=== PATIENT | male | born 1975 | race Caucasian/White ===

== ENCOUNTER 2024-04-15 16:24 | Inpatient (IN) | payer OTHER, SELFPAY ==
[2024-04-15] VITALS (7 sets, daily range): BP systolic 120–155; BP diastolic 67–111
--- NOTE | 2024-04-15 13:16 | ED.GENMED ---
History of Present Illness
General
Chief Complaint: Crisis Evaluation
Source: patient, police and other (302)
Exam Limitations: none
Time Seen by Provider: 04/15/24 12:51
Nursing documentation reviewed up to this point in time: agreed with
Travel History
Have you had any contact with someone who has COVID-19?: No
Do you have any symptoms of coronavirus? Fever > 100 degrees, chills, cough, shortness of breath, sore throat, loss of taste or smell, muscle aches, or headache?: No
History of Present Illness
History of Present Illness:
49-year-old male who admits to a history of daily alcohol use but denies any other chronic medical issues presents to the emergency room in police custody being held on a 302 apparently filed by his ; 302 filed apparently for suicidal ideation
and aggressive/violent threats. Patient tells me that 'this is all lies, she is the crazy woman.' He tells me that he did not threaten to kill himself and has no suicidal ideation at present. He says that he does not have any homicidal ideation
or intent to hurt others. He tells me he has not been having hallucinations. He says that he did try to hurt himself a year ago but has no suicidal thoughts currently. He does report that he feels some mild tremulousness and agitation and
believes he could be withdrawing from alcohol�he says that he had a few beers this morning last drink was 3 to 5 hours ago he estimates. Apparently he normally drinks 24 beers a day. He denies any other physical complaints such as chest pain,
shortness of breath, abdominal pain, nausea, headache or any other issues.
Review of Systems
Review of Systems
All Other Systems: ROS reviewed and negative except as documented in HPI and ROS
Constitutional: Denies fever
Respiratory: Denies cough or trouble breathing
Cardiac: Denies chest pain or palpitations
ABD/GI: Denies abdominal pain, nausea or vomiting
: Denies flank pain
Musculoskeletal: Denies neck pain or back pain
Neurological: Reports other (Tremulousness); Denies headache
Psychiatric: Reports anxiety and other (Restless); Denies suicidal or hallucinations
Phy Exam
Physical Exam
Physical Exam:
General: Awake, alert, oriented x3; patient somewhat restless and agitated, constantly shifting in bed
Head: Normocephalic, atraumatic
Eyes: Conjunctiva normal, pupils 3 to 4 mm and reactive to light bilaterally
Throat: Airway intact, handling secretions
Neck: Trachea midline, supple without meningismus
Lungs: Clear to auscultation bilaterally, no wheezing, rales, rhonchi
Heart: Regular rate and rhythm, no murmurs, gallops, or rubs
Abd: Soft, non distended, nontender
Neuro: Cranial nerves grossly intact, speech fluid, no gross motor or sensory deficits
Skin: no rash
Extremities: Atraumatic, warm well-perfused
Scores
Heart Failure Risk
Heart Failure Risk Score: Not Applicable
Heart Score for Chest Pain Patients
STEMI patient?: Not applicable
Withdrawal Assessment of Alcohol
Withdrawal Assessment Completed?: Yes
Nausea and Vomiting: No nausea and no vomiting
Tactile Disturbances: None
Tremor: Not visible, but can be felt fingertip to fingertip
Auditory Disturbances: Not present
Paroxysmal Sweats: No sweat visible
Visual Disturbances: Not present
Anxiety: Moderately anxious, or guarded, so anxiety is inferred
Headache, Fullness in Head: Not present
Agitation: Moderately fidgety and restless
Orientation and clouding of sensorium: Oriented and can do serial additions
Total CIWA Score: 9
Alcohol Withdrawal Medication Recommendation: Equal to MSAS Score 5-7. Lorazepam 1mg IV or PO NOW & re-assess q2hrs
Course
Orders/Labs/Results
Orders:
Orders
04/15/24 12:56
Drug Screen, Urine [Urine Drug Abuse Screen] Urgent
04/15/24 13:13
Lorazepam [Ativan] 1 mg PO NOW STA
04/15/24 13:23
Acetaminophen Urgent
Alcohol Urgent
Comprehensive Metabolic Panel Urgent
Salicylate Urgent
04/15/24 13:24
Complete Blood Count/With Diff Urgent
04/15/24 14:18
PSYCHIATRY CONSULT Urgent
Consulting Provider: Darrell Roach
Was physician already notified: Yes
Abnormal Lab Results
04/15/24 04/15/24
13: 13:24
MCH 31.6 H pg
(27.0-31.0)
Monocytes % 10.3 H %
(1.7-9.3)
BUN 7 L mg/dl
(9-20)
Glucose 112 H mg/dl
(70-99)
AST 116 H U/L
(17-59)
ALT 120 H U/L
(0-50)
Salicylates < 1.0 L mg/dl
(2.0-20.0)
Acetaminophen < 10 L ug/ml
(10-30)
04/15/24 13:24
04/15/24 13:23
Vital Signs
Initial and Last Documented VS:
Initial Vital Signs
Temp Pulse Resp BP Pulse Ox
37.2 C 107 18 155/111 99
04/15/24 12:58 04/15/24 12:58 04/15/24 12:58 04/15/24 12:58 04/15/24 12:58
Last Documented Vital Signs
Temp Pulse Resp BP Pulse Ox
37.2 C 107 18 155/111 99
04/15/24 12:58 04/15/24 12:58 04/15/24 12:58 04/15/24 12:58 04/15/24 12:58
MDM/Problems Addressed
Differential Diagnosis Includes:
Suicidality; concern clinically for alcohol withdrawal
MDM/Problems Addressed:
49-year-old male presents to the emergency room in police custody on a 302; he presents due to concerns about suicidality and violence/aggression. He does have a history of heavy daily alcohol use which he admits. He believes he could be
withdrawing from alcohol and he does clinically exhibit some signs of withdrawal�he is hypertensive, tachycardic, restless and anxious with some tremulousness. He says his last drink was at least 3 hours ago. Will plan to dose with some p.o.
Ativan here for early withdrawal. Will check basic labs including a CBC and a CMP, tox screen and alcohol level. Will monitor closely and reassess after the above. Crisis is aware patient and will complete her assessment.
Labs reviewed: CBC unremarkable, CMP shows mild elevation in transaminases likely in the setting of chronic alcohol abuse. Alcohol level 291. Patient was evaluated by psychiatry who upheld 302. Will need dual diagnosis facility. Unfortunately
were not able to place in detox facility in a timely manner per psychiatry. He is already starting signs of withdrawal with alcohol of 291 and drinks quite heavily daily�will admit for monitoring and treatment of alcohol withdrawal while pending
placement. Discussed with hospitalist for admission.
Chronic conditions affecting care:
Alcohol use
Acute Exacerbation and/or Progression of Chronic Illness:
Acutely hypertensive likely related to agitation and possibly alcohol withdrawal�will treat with Ativan but no emergent antihypertensives indicated at present
Acute Exacerbation and/or Progression of Chronic Illness: HTN
*Pulse Oximetry
Patient hypoxic: no
*Critical Care Note
Total Time (30-74mins, 75-104mins- exclusive of procedures): Not Applicable
Data Reviewed
Source: patient, police and other (302)
Patient Management
Discussion with other providers: Hospitalist (Discussed with hospitalist), Fitting Room Associate (Discussed with psychiatrist) and Other (Discussed with crisis team)
Escalation/DeEscalation of care consider admission/obs:
Admission indicated
ED Attending Note
-
Portions of this chart may have been created with voice recognition software.� Occasional wrong word or��sound alike� substitutions may have occurred due to the inherent limitations of voice recognition software.
Discharge Plan
Departure
Patient Disposition: Admit
Date of Disposition: 04/15/24
Time of Disposition: 14:15
Admit to doctor: Pili
Presentation/result/management discussed w/ accepting MD/DO: Hospitalist
Discharge Problem:
Alcohol withdrawal, Suicidal ideation
Referrals:
UNKNOWN,NO INTERVIEW [Family Provider] -
Interventions
Interventions:
*Risk Screen - Suicide Last Done: 04/15/24 12:52
*General Assessment Last Done: 04/15/24 12:52
*Neglect/Abuse Screening Last Done: 04/15/24 12:52
*ED COVID-19 Vaccine History Last Done: 04/15/24 12:52
ED-Psychological Assessment Last Done: 04/15/24 12:52
Discharge Date and Time
Print Language: EGYPTIAN
[2024-04-15] MEDS: ATIVAN 1 MG PO ×6 (13:20→23:38)
[2024-04-15 13:44] LABS: % Basophils 0.2 % (0-2); % Eosinophils 0.2 % (0-6); % Immature Granulocytes 0.2 % (0-0.5); % Lymphocytes 29.1 % (20.5-51.1); % Monocytes 10.3 % (1.7-9.3); Absolute Lymphocytes 1.4 10^3/uL (1.2-3.4); Absolute Monocytes 0.5 10^3/uL (0.1-0.6); Absolute Neutrophils 2.9 10^3/uL (1.4-6.5); Hematocrit 43.4 % (39.0-52.0); Hemoglobin 15.6 g/dL (13.0-18.0); Mean Corp Hgb Conc. 35.9 g/dL (33.0-37.0); Mean Corpuscular Hgb 31.6 pg (27.0-31.0); Mean Platelet Volume 9.2 fL (7.4-10.4); Nucleated Red Blood Cells % 0 % (-); Platelet Count 299 10^3/uL (130-400); Red Blood Cell Count 4.93 10^6/uL (4.70-6.10); Red Cell Dist. Width 12.4 % (11.5-14.5); White Blood Cell Count 4.8 10^3/uL (4.8-10.8)
[2024-04-15 13:59] LABS: ALT (SGPT) 120 U/L (0-50); AST (SGOT) 116 U/L (17-59); Acetaminophen < 10 ug/ml (10-30); Alcohol 291 mg/dl; Alkaline Phosphatase 97 U/L (38-126); Blood Urea Nitrogen 7 mg/dl (9-20); Calcium 8.9 mg/dl (8.4-10.2); Carbon Dioxide 28 mmol/L (22-30); Chloride 101 mmol/L (98-107); Glucose 112 mg/dl (70-99); Potassium 4.5 mmol/L (3.5-5.1); Salicylate < 1.0 mg/dl (2.0-20.0); Sodium 139 mmol/L (135-145); Total Bilirubin 0.7 mg/dl (0.2-1.3); eGFR > 60.00
--- NOTE | 2024-04-15 14:24 | PHANOTE ---
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
--- NOTE | 2024-04-15 14:47 | CM ---
Addendum entered by Martine Fox RN 04/15/24 15:45:
CM spoke with Nabil from [facility] and updated with a referral for inpatient drug/alcohol placement. Nabil or Ty from [facility] will follow patient.
Original Note:
Zane was updated by Shreya from crisis regarding 302. As per psychiatry, there are no plans to pursue 303 at this time. Plan for patient to be medically admitted.
CM updated Claudia Hall.
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
[2024-04-15] MEDS: PHENOBARBITAL 104 MG IV (16:12)
[2024-04-15 16:22] LABS: Alcohol 216 mg/dl; GGTP 25 U/L (15-73); Magnesium 2.3 mg/dl (1.6-2.3); Phosphorus 3.1 mg/dl (2.5-4.5)
[2024-04-15 16:30] LABS: B-Hydroxybutyrate 0.09 mmol/L (0.02-0.27)
[2024-04-15 16:30] LABS: INR 1.02; PT 13.4 Sec (11.4-14.6)
[2024-04-15 16:31] LABS: APTT 24.3 Sec (23.4-35.0)
[2024-04-15] MEDS: THIAMINE INJECTION 200 MG IV ×2 (17:59→23:38)
--- NOTE | 2024-04-15 18:03 | PTCARENOTE ---
Addendum entered by Paloma Felipe RN 04/15/24 18:12:
Patient has cell phone at bedside.
Original Note:
Received patient on admission from ED via stretcher accompanied by nurse and security guards; belongings in security dept. Received ativan and phenobarbital prior to coming to unit. Patient able to transfer self from stretcher to bed. Ox3,
cooperative with placement of heart monitor and BP cuff. Able to answer admission questions. 1:1 with PCT; only necessary equipment in room. MSAS =3. SR on monitor.
[2024-04-15] MEDS: PHENOBARBITAL 97.5 MG IV (21:08)
[2024-04-16] VITALS (9 sets, daily range): BP systolic 127–145; BP diastolic 45–99; BMI 26.1
--- NOTE | 2024-04-16 03:34 | PTCARENOTE ---
ax3 medicated with prn Ativan per msas- mostly cooperative- 1-1 at bedside safe environment maintained
[2024-04-16] MEDS: ATIVAN 1 MG PO ×7 (05:49→22:48)
[2024-04-16 05:55] LABS: Hematocrit 40.8 % (39.0-52.0); Hemoglobin 14.3 g/dL (13.0-18.0); Mean Corpuscular Hgb 31.8 pg (27.0-31.0); Mean Corpuscular Volume 90.7 fL (80.0-94.0); Mean Platelet Volume 9.1 fL (7.4-10.4); Platelet Count 234 10^3/uL (130-400); Red Cell Dist. Width 12.1 % (11.5-14.5); White Blood Cell Count 6.5 10^3/uL (4.8-10.8)
--- NOTE | 2024-04-16 06:02 | PTCARENOTE ---
ax3 pleasant and cooperative- remains 1-1- medicated with phenobarb/ativan per mar and msas protocol
[2024-04-16 07:06] LABS: TSH 3.11 uIU/ml (0.47-4.68)
[2024-04-16 07:07] LABS: Vitamin B12 586 pg/ml (239-931)
[2024-04-16 07:30] LABS: ALT (SGPT) 72 U/L (0-50); AST (SGOT) 73 U/L (17-59); Albumin 3.8 g/dl (3.5-5.0); Alkaline Phosphatase 110 U/L (38-126); Blood Urea Nitrogen 13 mg/dl (9-20); Calcium 8.7 mg/dl (8.4-10.2); Carbon Dioxide 27 mmol/L (22-30); Chloride 99 mmol/L (98-107); Estimated Creatinine Clearance 97 ml/min; Glucose 111 mg/dl (70-99); Magnesium 1.8 mg/dl (1.6-2.3); Potassium 3.9 mmol/L (3.5-5.1); Sodium 134 mmol/L (135-145); Total Bilirubin 1.1 mg/dl (0.2-1.3); Total Protein 6.3 g/dl (6.3-8.2); eGFR > 60.00
[2024-04-16] MEDS: FOLVITE 1 MG PO (07:54)
[2024-04-16] MEDS: THIAMINE INJECTION 200 MG IV ×2 (07:55→15:47)
[2024-04-16] MEDS: MIRALAX 17 GRAMS PO (07:55)
[2024-04-16] MEDS: PHENOBARBITAL 97.5 MG IV ×2 (07:55→15:47)
--- NOTE | 2024-04-16 08:21 | PTCARENOTE ---
pt wakes to name. states no pain. calm following commands. states does not feel anxious. taking medication. msas 0 1:1 obs maintained by RN.
--- NOTE | 2024-04-16 09:45 | W.PN.HOSP.TC ---
Today's Communication/Plan
-
cont current treatment
await psych
Assessment / Plan
Assessment / Plan
pt is a 49 year old male
Alcohol withdrawal-- spoke with psychiatry, patient was 302'd which was upheld--concern for significant withdrawal symptoms given his amount of alcohol intake (30 beers per day)--MSAS--phenobarbitol taper--continue thiamine and folate replacement,
replace K and Mag if needed--- strongly suspect undiagnosed psychiatric disorder perhaps bipolar, patient seems manic--refusing any medications from that standpoint--on 1:1--await psych input re: downgrade and 1:1
DVT prophylaxis
CODE STATUS--full code
Anticipated Discharge: > 48 hours
Subjective/Interval History
-
Date of Service: April 16, 2024
pt without c/o--wants to know what his paperwork says to keep him here and when he can go home
Objective Data
-
Labs:
Laboratory Results
04/16/24 04/16/24
05:40 06:38
WBC 6.5
Hgb 14.3
Hct 40.8
Plt Count 234 D
Sodium Cancelled 134 L
Potassium Cancelled 3.9
Chloride Cancelled 99
Carbon Dioxide Cancelled 27
BUN Cancelled 13
Creatinine Cancelled 0.9
Glucose Cancelled 111 H
Calcium Cancelled 8.7
Total Bilirubin Cancelled 1.1
AST Cancelled 73 H
ALT Cancelled 72 H
Alkaline Phosphatase Cancelled 110
Vital Signs:
max temp for 24 hours
04/15/24
23:19
Temp 98.8 F
Vital Signs
Temp Pulse Resp BP Pulse Ox
98.1 F 69 14 145/96 98
04/16/24 08:19 04/16/24 08:02 04/16/24 08:02 04/16/24 08:02 04/16/24 08:19
I&O
04/15/24 04/16/24 04/17/24
06:59 06:59 06:59
Intake Total 1600 / 1600
Balance 1600 / 1600
Review of Systems
-
All other systems: Reviewed and negative
Physical Exam
-
General: Well Developed, Well Nourished and No Apparent Distress
HEENT: Normocephalic and Atraumatic
Respiratory: Clear to Auscultation; Negative Wheezes or Rhonchi
Cardiac: Regular Rhythm and S1/S2; Negative Murmur
GI: Soft, Nontender, Nondistended and Normal Bowel Sounds
Musculoskeletal: No Clubbing, No Cyanosis and No Edema
Neuro: Awake; Negative Tremors
Psych: Calm
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
[2024-04-16] MEDS: MAGNESIUM OXIDE 500 MG PO ×2 (12:31→19:34)
--- NOTE | 2024-04-16 12:48 | PTCARENOTE ---
pt states he wants to go home explained the 302 process. states he feels anxious and would like something for it. msas as documented.
--- NOTE | 2024-04-16 13:37 | CM ---
Patient with Dx alcohol withdrawal on 302 psychiatric hold. Tox screen: Etoh 291, 216. Receiving IV Phenobarb, IV Ativan prn. Seen by Psych. One to one observation. ROBIN.
Met with patient with nurse Hiram present- he is declining any inpatient or outpatient referrals for a Psych/Etoh program. He says he went to [facility] for drug use before and all it did was create a social network for more drug use when he left the
program. He is stating he wants to leave today and that he is feeling anxious. Nurse told him he cannot leave due to 302. He says he missed an appointment today at [facility].
Message to [facility] with update patient declining Inpt Dual Diagnosis program at this time.
Spoke with JULIEN Ferrer; he will let [facility] know that patient missed his appt today due to admission here. Nabil says he is not permitted to see this patient until the 302 is lifted.
Plan follow up with Psych on 04/20 when 302 will if 303 will be pursued, and if will need referrals to an Inpatient Dual Dx program.
[2024-04-16] MEDS: LUMINAL 64.7999999999999972 MG PO (21:30)
[2024-04-16] MEDS: ATIVAN 2 MG IV (22:10)
[2024-04-17] MEDS: THIAMINE INJECTION 200 MG IV ×4 (02:38→21:25)
--- NOTE | 2024-04-17 02:51 | PTCARENOTE ---
msas max was 11- difficult time keeping leads on pt- pt feels he is in more severe withdraw- medicating per msas- see 11-24 at bedside
[2024-04-17 03:16] VITALS: BP 136/91
[2024-04-17] MEDS: ATIVAN 1 MG PO ×8 (05:41→22:32)
[2024-04-17 06:12] LABS: Hemoglobin 13.6 g/dL (13.0-18.0); Mean Corp Hgb Conc. 35.8 g/dL (33.0-37.0); Mean Corpuscular Hgb 31.8 pg (27.0-31.0); Mean Corpuscular Volume 88.8 fL (80.0-94.0); Mean Platelet Volume 9.5 fL (7.4-10.4); Platelet Count 214 10^3/uL (130-400); Red Blood Cell Count 4.28 10^6/uL (4.70-6.10); White Blood Cell Count 5.7 10^3/uL (4.8-10.8)
[2024-04-17 06:26] LABS: ALT (SGPT) 75 U/L (0-50); AST (SGOT) 64 U/L (17-59); Alkaline Phosphatase 91 U/L (38-126); Blood Urea Nitrogen 8 mg/dl (9-20); Calcium 9.3 mg/dl (8.4-10.2); Carbon Dioxide 25 mmol/L (22-30); Chloride 100 mmol/L (98-107); Estimated Creatinine Clearance 109 ml/min; Glucose 97 mg/dl (70-99); Magnesium 2.1 mg/dl (1.6-2.3); Potassium 4.3 mmol/L (3.5-5.1); Sodium 134 mmol/L (135-145); Total Bilirubin 1.1 mg/dl (0.2-1.3); Total Protein 6.7 g/dl (6.3-8.2); eGFR > 60.00
[2024-04-17] MEDS: LUMINAL 64.7999999999999972 MG PO ×2 (07:09→15:04)
[2024-04-17] MEDS: FOLVITE 1 MG PO (07:10)
[2024-04-17] MEDS: MIRALAX 17 GRAMS PO (07:11)
[2024-04-17] MEDS: MAGNESIUM OXIDE 500 MG PO ×2 (07:11→21:25)
[2024-04-17 07:30] VITALS: BP 142/91
--- NOTE | 2024-04-17 08:31 | PTCARENOTE ---
0800 MSAS 6. Medicated w/ 1mg ativan. See MAR.
--- NOTE | 2024-04-17 08:42 | PTCARENOTE ---
Assumed care of pt from nightshift RN. Pt AAOx3, restless. Forgetful at times. NSR on the monitor, HR 60s-70s. Pt agitated stating that he needs to shower. This RN explained to pt that MD order is needed to shower, however able to provide bath wipes
to freshen up until MD sees patient.
--- NOTE | 2024-04-17 08:51 | W.PN.HOSP.TC ---
Today's Communication/Plan
-
okay to shower
Assessment / Plan
Assessment / Plan
pt is a 49 year old male
Alcohol withdrawal-- spoke with psychiatry, patient was 302'd which was upheld--concern for significant withdrawal symptoms given his amount of alcohol intake (30 beers per day)--MSAS--phenobarbitol taper--continue thiamine and folate replacement,
replace K and Mag if needed--- strongly suspect undiagnosed psychiatric disorder perhaps bipolar, patient seems manic--refusing any medications from that standpoint--on 1:1--apprec psych input --keep 1:1--transfer to tele
DVT prophylaxis
CODE STATUS--full code
Anticipated Discharge: > 48 hours
Subjective/Interval History
-
Date of Service: April 17, 2024
pt without c/o
Objective Data
-
Labs:
Laboratory Results
04/17/24
06:04
WBC 5.7
Hgb 13.6
Hct 38.0 L
Plt Count 214
Sodium 134 L
Potassium 4.3
Chloride 100
Carbon Dioxide 25
BUN 8 L
Creatinine 0.8
Glucose 97
Calcium 9.3
Total Bilirubin 1.1
AST 64 H
ALT 75 H
Alkaline Phosphatase 91
Vital Signs:
max temp for 24 hours
04/16/24
23:10
Temp 97.8 F
Vital Signs
Temp Pulse Resp BP Pulse Ox
97.6 F 76 26 136/91 98
04/17/24 04:11 04/17/24 06:00 04/17/24 06:00 04/17/24 03:16 04/16/24 23:17
I&O
04/16/24 04/17/24 04/18/24
06:59 06:59 06:59
Intake Total 1600 / 1600
Balance 1600 / 1600
Review of Systems
-
All other systems: Reviewed and negative
Physical Exam
-
General: Well Developed, Well Nourished and No Apparent Distress
HEENT: Normocephalic and Atraumatic
Respiratory: Clear to Auscultation; Negative Wheezes or Rhonchi
Cardiac: Regular Rhythm and S1/S2; Negative Murmur
GI: Soft, Nontender, Nondistended and Normal Bowel Sounds
Musculoskeletal: No Clubbing, No Cyanosis and No Edema
Skin: Warm
Neuro: Awake
--- NOTE | 2024-04-17 11:27 | PTCARENOTE ---
pt agitated wanting to go home. States 'i have people that will pick me up'. This RN explained to pt he is unable to leave at this time regardless of having a ride home.
[2024-04-17 11:43] LABS: Urine Albumin Negative (Neg - Trace); Urine Bilirubin Negative (Negative); Urine Character Clear (Clear); Urine Color Yellow; Urine Glucose Negative (Negative); Urine Ketone Negative (Negative); Urine Leukocyte Negative (Negative); Urine Nitrite Negative (Negative); Urine Occult Blood Negative (Negative); Urine Urobilinogen Negative (Neg - 1+)
[2024-04-17 11:50] LABS: Amphetamines Negative (Negative); Barbiturates Positive (Negative); Benzodiazepines Positive (Negative); Buprenorphine Negative (Negative); Cocaine Negative (Negative); Marijuana Negative (Negative); Methadone Negative (Negative); Methamphetamines Negative (Negative); Opiates Negative (Negative); Phencyclidine Negative (Negative); Tricyclic Antidepressants Negative (Negative)
[2024-04-17 12:19] LABS: Fentanyl, Urine Negative (Negative)
[2024-04-17 15:05] VITALS: BP 129/88
--- NOTE | 2024-04-17 15:49 | W.PN.UPDATE ---
Update Note
Progress Note Update
49 y/o single male on by mother of his child in IMU for alcohol withdrawal. On 04/15 BAL was 291; BHB 0.09. He is on Phenobarbital and Ativan detox.
Was resting comfortably, but quite cantankerous. Denies that Dr. Roach read him the petition. He does admit to drinking beer and being in the hospital for alcohol detox. He is has apparently had multiple past detoxes, but did not share
details with me. He wants to leave the hospital and is not very accepting that he is not permitted to leave due to the 302. I further told him that he should continue on his detox medications to prevent withdrawal symptoms and potentially
seizures. He claims he has taken Ativan 1 mg. q 8 H prescribed and was not drinking at the time.
He focused on just wanting to get an iPhone port warden as his phone is .
Continues on . He is opposed to voluntary hospitalization or to admission to alcohol treatment program.
Psychiatry will follow.
--- NOTE | 2024-04-17 17:39 | PTCARENOTE ---
Pt becoming agitated that hospital pajama bottoms fall down repeatedly. Explained to patient that there are no more pt pajama bottoms on unit. Call placed to [facility] for paper scrub pants as all hospital pajama pants fit the same. This RN asked pt what
size he is. Pt continuously being irate stating 'what goes around comes around'. This RN asked for clarification as there have been numerous accommodations provided throughout the day. This RN explained to patient the importance of being respectful
to dietary as he wouldn't provide staff w/ confirmation of name/. Pt AAOx3, NSR on the [facility], HR 70s. BP 131/87. Pt states that were holding him against his will. Reiterated what psychiatrist explained regarding 302. Pt 'doesn't accept it'.
[2024-04-17 17:47] VITALS: BP 131/87
--- NOTE | 2024-04-17 18:17 | PTCARENOTE ---
Pt expressing that he is wanting to leave, again. This RN explained to pt, again, that he is a 302 and unable to leave. Pt states he has not seen any paperwork regarding 302. Pt also told this RN 'if i'm not out of here within the hour, I'm going to
bruce you and this whole hospital. I have a good tag meter operator, you'll see'. This RN explained to patient that I don't make the rules, multiple doctors have explained the 302 process, and legally he is not allowed to leave.
--- NOTE | 2024-04-17 18:26 | PTCARENOTE ---
security at bedside regarding increasing agitation. Pt threatening to leave. Pt now screaming at security. Pt still agitated over pants, however, [employer] sent a top instead of pants. Pt expressed that this is RNs fault.
--- NOTE | 2024-04-17 18:42 | PTCARENOTE ---
Nursing security supervisor at bedside regarding pt escalating. Pt repeating that this RN gave him ripped pants so his 'junk' is hanging out. This RN explained that it's how the hospital pajama pants are. Pt also states that i'm withholding phone home health nurse licensed practical
from him. However, this RN has no home health nurse licensed practical to share with patient. Offered apology to pt regarding phone home health nurse licensed practical. Pt replied that this was on purpose. marketing proposal specialist in room at present.
[2024-04-17] MEDS: LUMINAL 32.3999999999999986 MG PO (21:25)
[2024-04-17 23:07] VITALS: BP 139/88
--- NOTE | 2024-04-18 00:52 | PTCARENOTE ---
Addendum entered by Leona Catherine 04/18/24 03:07:
MSAS 2-5, see MAR for intervention.
Original Note:
Pt AAOx3, restless at times. Pt requests a snack, this RN gave pt crackers. Pt still reports being too hungry to sleep, states he will 'be irate by the morning' if he does not eat now. This RN gave pt a boxed lunch.
[2024-04-18] MEDS: ATIVAN 1 MG PO ×2 (00:55→09:35)
[2024-04-18 03:30] VITALS: BP 125/84
[2024-04-18 03:35] VITALS: BP 125/84
--- NOTE | 2024-04-18 07:35 | PTCARENOTE ---
Assumed care of pt from giovanna ROMO. 1:1 present. Pt resting comfortably, no diaphoresis present, HR in 60s, does not appear tremulous, no fever present.
--- NOTE | 2024-04-18 08:39 | W.PN.HOSP.TC ---
Today's Communication/Plan
-
apprec psych
cont 1:1
ok for tele if bed available
Assessment / Plan
Assessment / Plan
pt is a 49 year old male
Alcohol withdrawal--seems resolved-- spoke with psychiatry, patient was 302'd which was upheld-- alcohol intake (30 beers per day)--MSAS, phenobarbitol taper, standing ativan TID, thiamine and folate replacement, replace K and Mag if needed---
strongly suspect undiagnosed psychiatric disorder perhaps bipolar--refusing any medications from that standpoint--on 1:1--apprec psych input --keep 1:1--transfer to tele
DVT prophylaxis
CODE STATUS--full code
Anticipated Discharge: > 48 hours
Subjective/Interval History
-
Date of Service: April 18, 2024
pt turned away from me this AM when trying to examine him--no verbal contact with me
Objective Data
-
Labs:
Laboratory Results
04/18/24
06:00
WBC Pending
Hgb Pending
Hct Pending
Plt Count Pending
Sodium Pending
Potassium Pending
Chloride Pending
Carbon Dioxide Pending
BUN Pending
Creatinine Pending
Glucose Pending
Calcium Pending
Vital Signs:
max temp for 24 hours
04/18/24
03:35
Temp 98.4 F
Vital Signs
Temp Pulse Resp BP Pulse Ox
98.4 F 69 18 125/84 96
04/18/24 03:35 04/18/24 06:00 04/18/24 03:35 04/18/24 03:35 04/18/24 03:35
I&O
04/17/24 04/18/24 04/19/24
06:59 06:59 06:59
Intake Total 2640 / 264
Output Total 750 / 750
Balance 1889 / 1889
Review of Systems
-
Unable to obtain full review of systems at this time due to: Other (refused to interact with me)
Physical Exam
-
General: Well Developed, Well Nourished, No Apparent Distress and Other (exam as listed, refused to let me examine further)
HEENT: Normocephalic and Atraumatic
Respiratory: Clear to Auscultation; Negative Wheezes or Rhonchi
--- NOTE | 2024-04-18 09:26 | PTCARENOTE ---
0800 MSAS: scored 0. No medications needing to be given at this time.
[2024-04-18] MEDS: THIAMINE INJECTION 200 MG IV (09:34)
[2024-04-18] MEDS: FOLVITE 1 MG PO (09:34)
[2024-04-18] MEDS: MIRALAX 17 GRAMS PO (09:35)
[2024-04-18] MEDS: LUMINAL 32.3999999999999986 MG PO ×2 (09:35→15:55)
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
[2024-04-18 11:19] VITALS: BP 133/85
[2024-04-18] MEDS: ATIVAN 0.5 MG PO ×2 (11:26→17:03)
--- NOTE | 2024-04-18 11:27 | PTCARENOTE ---
pt questioning ativan dose, wondering if he can get his PRN. However, PRN is discontinued. MSAS remains a zero. Pt given scheduled 0.5mg of ativan. Asking 'if it makes me angry can I get the second half?' This RN explained that medication dosing
does not work that way and this RN is only able to give medications per MD order. After providing pt with scheduled 0.5mg Ativan, pt informed this RN 'it fell down the straw and dissolved'. No remnants of medication present in straw or styrofoam
cup.
--- NOTE | 2024-04-18 12:42 | PTCARENOTE ---
MSAS intervention completed as per psychiatry. Showing no symptoms of alcohol withdrawal.
--- NOTE | 2024-04-18 15:21 | PTCARENOTE ---
pt son, philipp in room to visit with patient.
[2024-04-18 15:46] VITALS: BP 123/70
--- NOTE | 2024-04-18 16:04 | PTCARENOTE ---
pt became agitated while providing phenobarbital at scheduled time, and that it wasn't time for ativan yet. Pt threw empty medicine cup. This RN explained that throwing things on the floor is not appropriate and is not tolerated.
--- NOTE | 2024-04-18 17:08 | PTCARENOTE ---
pt yelling at this RN, Again. Regarding ativan dosing. Pt expressing that this RN is rude, for not changing his dose back. Explained to pt that I am unable to change medication orders. Pt states 'I'm going to have a seizure from not getting ativan'.
Explained if a seizure occurs, pt will be treated for that. MSAS throughout shift remains at zero. Pt also yelling at this RN, regarding hospital pajama pants issue. Explained to pt I have no say over how hospital pajama pants are made. Pt remains
agitated. 1:1 maintained for pt safety.
[2024-04-18] MEDS: VITAMIN B1 PO (20:08)
--- NOTE | 2024-04-18 20:09 | PTCARENOTE ---
Addendum entered by Leona Catherine 04/18/24 21:20:
Pt noncompliant with cardiac monitoring at times
Original Note:
Pt refuses PO Vitamin B. Requests PRN ativan. This RN reinforced education that PRN ativan was for MSAS protocol which is no longer applicable.
--- NOTE | 2024-04-18 21:24 | PTCARENOTE ---
Pt removed own IV d/t complaints of pain, refused to let VAT team place a new line. Education offered regarding rationale for IV access, pt refused.
[2024-04-18] MEDS: MELATONIN 5 MG PO (22:46)
--- NOTE | 2024-04-18 23:07 | PTCARENOTE ---
Pt has been agitated, irritable, repeatedly coming out to nurse's station demanding food. Lunch box given. Pt demanding medication for sleep. This RN discussed POC with pt and REGISTRATION COORDINATOR. Melatonin given per JAN. Pt asked this RN 'do I snort this or
swallow it?' This RN educated pt that melatonin is a pill and we do not snort any medication in the hospital. Pt states that if this medication does not work, he will come out to the nurse's station all night. Security made aware.
[2024-04-19 07:11] VITALS: BP 98/81
[2024-04-19] MEDS: FOLVITE 1 MG PO (08:06)
[2024-04-19] MEDS: ATIVAN PO (08:06)
[2024-04-19] MEDS: MIRALAX PO ×2 (08:06→09:28)
[2024-04-19] MEDS: VITAMIN B1 PO ×3 (08:06→19:50)
--- NOTE | 2024-04-19 08:46 | W.PN.HOSP.TC ---
Today's Communication/Plan
-
302 hearing tomorrow
Assessment / Plan
Assessment / Plan
Gen: NAD, Awake and alert
Eyes: EOMI, PERRLA, no scleral icterus.
Neck: supple.
CV: RRR, +S1/S2, no m/r/g.
Resp: CTAB, no rales, wheezes, or rhonchi.
Abd: +BS, soft, NT, ND
Skin: No rashes.
Neuro: CN 2-12 intact, non-focal.
Psych: flat affect.
Acute alcohol withdrawal:
-on 302
-h/o alcohol abuse disorder, up to 30 beers per day
-cont Thiamine/folate
-Completed phenobarbital taper
-Transaminitis due to alcohol abuse, overall improved
-psych following
FULL/Lovenox
Anticipated Discharge: Within 24 hours
Subjective/Interval History
-
Date of Service: April 19, 2024
Pt does not offer acute complaints.
Objective Data
-
Vital Signs:
Vital Signs
Temp Pulse Resp BP Pulse Ox
97.9 F 66 18 123/70 96
04/19/24 07:12 04/19/24 06:00 04/18/24 03:35 04/18/24 15:46 04/18/24 03:35
I&O
04/18/24 04/19/24 04/20/24
06:59 06:59 06:59
Intake Total 2640 / 2640 1440 / 1440
Output Total 750 / 750
Balance 189 / 189 1440 / 1440
[2024-04-19] MEDS: SENOKOT-S 1 TABLET PO (09:29)
[2024-04-19] MEDS: ATIVAN 0.5 MG PO ×4 (09:29→21:20)
--- NOTE | 2024-04-19 09:30 | PTCARENOTE ---
Patient received from md psychiatry. Patient resting comfortably in bed. AAO, VSS. No events noted overnight. No complaints of pain at this time. Patient at this time more agreeable and cooperative with care plan. Telemetry level. Self
ambulating in room. Patient receiving scheduled Ativan and still currently on 1:1. Call pritchett in reach.
--- NOTE | 2024-04-19 12:58 | W.PN.UPDATE ---
Update Note
Progress Note Update
Patient is very abrupt and angry. He wants to go home and claims he does not know about the 303 hearing tomorrow. No matter what I asked him he denied feeling that his family lied and that there is nothing wrong. He is not interested in any mental
health treatment.
I did explain the commitment procedure and that he would have representation from publications manager. He insisted he will be discharged no matter what.
--- NOTE | 2024-04-19 16:50 | PTCARENOTE ---
Although patient more compliant with certain aspects of care, patient keeps removing tele leads and tossing portable telemetry pack. Message sent to hospitalist to consider making patient med/surg. Continues with no IV access.
--- NOTE | 2024-04-19 16:54 | PTCARENOTE ---
Report called to Monica ROMO 4W.
--- NOTE | 2024-04-19 17:50 | PTCARENOTE ---
Patient transferred to [facility] via [facility] 1:1 went with patient to new room. Some belongings were left behind and taking up by PCT. Receiving RN and PCT aware of patients arrival.
[2024-04-19 17:59] VITALS: BP 118/72
--- NOTE | 2024-04-19 18:00 | PTCARENOTE ---
Patient arrived to floor from IMU. Patient AAOx3, 1:1 at bedside with patient. Patient has no needs at present.
--- NOTE | 2024-04-19 19:09 | PTCARENOTE ---
Addendum entered by Kathe King RN 04/19/24 22:05:
Pt. continues with restlessness. Pt. stated that he was 'very, very anxious and stressed out' about his day tomorrow as he is to go to his hearing. Pt. pacing in the room and looking visibly anxious and restless. Pt. requesting his Ativan again as
he 'is so anxious and can't stand it.' Scheduled Ativan doses completed for the day prior to this nurse's shift. Provider notified regarding pt. behavior and request. A one time dose of Ativan given to pt. Pt. stable at this time; 1:1 continues,
will continue to monitor.
Original Note:
Patient refusing tele monitor and keeps removing it. Pt. educated regarding cardiac monitoring, pt. continues to refuse monitor, tele pack removed by patient. Provider notified. Pt. also asking to take a shower. Pt. visibly restless and attempting
to get in the shower. 1:1 continues, will continue to monitor.
[2024-04-19 19:34] VITALS: BP 115/74
[2024-04-19] MEDS: MELATONIN 5 MG PO (21:20)
[2024-04-19 23:08] VITALS: BP 121/79
[2024-04-20 03:11] VITALS: BP 114/60
[2024-04-20 07:00] VITALS: BP 118/80
[2024-04-20] MEDS: FOLVITE 1 MG PO (08:59)
[2024-04-20] MEDS: MIRALAX PO ×2 (08:59→09:04)
[2024-04-20] MEDS: ATIVAN 0.5 MG PO ×2 (08:59→11:54)
[2024-04-20] MEDS: VITAMIN B1 100 MG PO (08:59)
--- NOTE | 2024-04-20 12:11 | W.PN.HOSP.TC ---
Today's Communication/Plan
-
d/c
Assessment / Plan
Assessment / Plan
Gen: NAD, Awake and alert
Eyes: EOMI, PERRLA, no scleral icterus.
Neck: supple.
CV: Remains RRR, +S1/S2, no m/r/g.
Resp: Remains CTAB, no rales, wheezes, or rhonchi.
Abd: +BS, soft, NT, ND
Skin: No rashes.
Neuro: CN 2-12 intact, non-focal.
Psych: Normal mood and affect.
Acute alcohol withdrawal:
-h/o alcohol abuse disorder, up to 30 beers per day
-was on 302, now cleared for discharge psychiatrically by Dr. Mike. Pt declined EtOH rehab.
-cont Thiamine/folate
-Completed phenobarbital taper
-Transaminitis due to alcohol abuse, overall improved
FULL/Lovenox
Anticipated Discharge: Today
Subjective/Interval History
-
Date of Service: April 20, 2024
Denies chest pain, shortness of breath, auditory or visual hallucinations. Reports some anxiety.
Objective Data
-
Vital Signs:
Vital Signs
Temp Pulse Resp BP Pulse Ox
97.8 F 57 14 118/80 97
04/20/24 07:00 04/20/24 07:00 04/20/24 07:00 04/20/24 07:00 04/20/24 07:00
I&O
04/19/24 04/20/24 04/21/24
06:59 06:59 06:59
Intake Total 1440 / 1440 1720 / 1720
Balance 1440 / 1440 1720 / 1720
--- NOTE | 2024-04-20 12:36 | W.PN.UPDATE ---
Update Note
Progress Note Update
Pt seen, chart reviewed. Pt resting calmly in bed, with no apparent distress. Pt alert, oriented, affect appropriate, mood stable, speech/thought coherent/goal-directed, no signs of psychosis. Pt denies any SI, denies he had any suicidal
plan/intent on admission. 302 expires today at 12:45 pm. Pt denies any further alcohol withdrawal symptoms; he declines alcohol rehab, states he has things to do at home.
Imp: Alcohol Use d/o, severe. Pt appears stable, with no grounds for 303 extension of involuntary treatment
Rec: Pt is psychiatrically stable for discharge, can be released before the 302 expires today if needed.
--- NOTE | 2024-04-20 13:03 | CM ---
Patient for d/c today.
Plan: home no needs.
--- NOTE | 2024-04-20 15:38 | W.DCSUMMARY ---
Discharge Summary
Discharge Data
Date of Admission: 04/15/24
Date of Discharge: 04/20/24
-
Pending Results: No
Hospital Course
Primary diagnoses:
Acute alcohol withdrawal due to alcohol abuse disorder
Secondary diagnoses:
Transaminitis due to alcohol abuse.
Consultants:
Psychiatry
Imaging:
None
Hospital course: 49-year-old male who is brought in on a 302 with a chief complaint of alcohol withdrawal. Patient was placed on the MSAS protocol and was treated supportively. He was given thiamine and folate. He completed a phenobarbital taper.
He received Ativan while hospitalized. Patient's withdrawal symptoms improved. He was cleared for discharge from a psychiatric standpoint by Dr. Mike. He declined EtOH rehab.
Discharge Plan
-
Patient Disposition: Home (Routine Discharge)
Discharge Diagnosis/Procedures: Acute alcohol withdrawal due to alcohol abuse disorder
Condition: Good
Diet: No restrictions
Activity: As tolerated
Driving Restrictions: As prior to admission
Instructions: Alcohol Use Disorder (DC), Effects of Alcohol on Your Health
Referrals:
UNKNOWN,NO INTERVIEW [Family Provider] - in less than 1 week
Prescriptions:
New
thiamine HCl (vitamin B1) 100 mg Tablet
100 mg PO BID Qty: 0 0RF
folic acid 1 mg Tablet
1 mg PO DAILY Qty: 0 0RF
Discharge Orders:
Discharge Patient (As Directed); Ordered 04/20/24
Ordered By: Karlos Alfonso
Discharge Date and Time
Discharge Date/Time: 04/20/24 13:32
Print Language: [id number]
== END 2024-04-20 13:32 | disposition home or self-care (01) | DRG 897 ==
LOC: 4 WEST ACU 16:24
PROVIDERS: ADMITTING PHYSICIAN Internal Medicine; ATTENDING PHYSICIAN Internal Medicine; CONSULT PHYSICIAN Psychiatry & Neurology Psychiatry; EMERGENCY PHYSICIAN Emergency Medicine
DX: F10.239 Alcohol dependence with withdrawal, unspecified (principal); R45.851 Suicidal ideations; F10.280 Alcohol dependence with alcohol-induced anxiety disorder; Y90.8 Blood alcohol level of 240 mg/100 ml or more; F10.229 Alcohol dependence with intoxication, unspecified; R45.1 Restlessness and agitation; I10 Essential (primary) hypertension; F31.9 Bipolar disorder, unspecified; R74.01 Elevation of levels of liver transaminase levels; Z91.51 Personal history of suicidal behavior
CPT/HCPCS: 80053; 80143; 80179; 80306; 80307; 81003; 82010; 82077; 82607; 82977; 83735; 84100; 84443; 85025; 85027; 85610; 85730; 99285